=== PATIENT | male | born 1990 | race Caucasian/White ===

== ENCOUNTER 2020-08-18 07:52 | Emergency (ER) | payer SELFPAY ==
[2020-08-18 07:57] VITALS: BP 153/105; PULSE 99; RESP 18; TEMP 37.2; O2SAT 100; BMI 22.0
--- NOTE | 2020-08-18 08:01 | ED_ITS ---
HPI - URI/Sore Throat General: Chief Complaint: General Medical Stated Complaint: SWOLLEN THROAT Time Seen by Provider: 08/18/20 07:54 History of Present Illness: HPI Narrative: 30-year-old male presents to the emergency room with complaint of sore throat swelling in his throat. He states he woke up with it this morning. He has not had any vomiting not had any diarrhea he has not had any shortness of breath or coughing. No abdominal pain. MD elicited complaint: sore throat Onset (ago): hour(s) Consistency: constant Severity: moderate Exacerbating factors: swallowing and speaking Associated symptoms: Deny abdominal pain, change in voice, chills, chest pain, congestion, cough, diarrhea, epistaxis, ear or mastoid pain, fever(s), headache(s), myalgias, nasal congestion, nausea, rash, rhinorrhea, short of breath, sinus pain, stiffness, sore throat or vomiting Treatments prior to arrival: none Review of Systems Const: Denies: fever(s) or chills ENMT: Denies: ear or mastoid pain, nasal congestion, epistaxis or sinus pain Card: Denies: chest pain Resp: Denies: dyspnea, productive cough or non-productive cough GI: Denies: abdominal pain, nausea, vomiting or diarrhea : Denies: flank pain, dysuria, urinary frequency or urinary urgency Skin/Breast: Denies: rash or pruritus Neuro: Denies: headache(s) Physical Exam Const: COMMON NORMALS: no acute distress GENERAL APPEARANCE: cooperative and comfortable ORIENTATION/CONSCIOUSNESS: Yes awake, Yes oriented to person, Yes oriented to place and Yes oriented to time HENMT: COMMON NORMALS: normocephalic, atraumatic, hearing grossly normal bilaterally, external ears normal, EAC's normal, TM's normal bilaterally, Normal nasal mucous membranes and turbinates present and moist oral mucous membranes HEAD & SCALP: normocephalic and atraumatic NOSE: Normal nasal mucous membranes and turbinates present EXTERNAL EAR: Yes external ears normal EXTERNAL AUDITORY CANAL: EAC's normal TYMPANIC MEMBRANE: TM's normal bilaterally THROAT: posterior oropharynx abnormal edema, erythema and exudates Eye: COMMON NORMALS: Equal, round and reactive pupils present, EOMs intact bilaterally, conjunctivae normal and no scleral icterus CONJUNCTIVA: Yes conjunctivae normal PUPIL: Yes Equal, round and reactive pupils present Neck/C-Spine: COMMON NORMALS: full ROM, no lymphadenopathy, supple and no JVD Lymph: LYMPHATIC: no lymphadenopathy noted and no lymphedema noted Resp: COMMON NORMALS: normal respiratory effort, No retractions, No use of accessory muscles and clear to auscultation bilaterally AUSCULTATION: clear to auscultation bilaterally Cardio: COMMON NORMALS: no JVD, regular rate, regular rhythm and No murmurs present (Cardio) RATE: regular rate RHYTHM: regular rhythm GI: COMMON NORMALS: Soft to palpation and No hepatosplenomegaly present AUSCULTATION: Yes normoactive bowel sounds PALPATION: Yes Soft to palpation, No Tenderness to palpation present (GI), No Guarding due to palpation present (GI) and Yes No hepatosplenomegaly present Extremity: COMMON NORMALS: normal to inspection, capillary refill normal, no clubbing, cyanosis or edema, no calf tenderness and no pedal edema Neuro: SENSORIUM/ORIENTATION: Yes oriented to person, Yes oriented to place and Yes oriented to time Skin: COMMON NORMALS: no rashes or lesions noted GENERAL SKIN EXAM: no rashes or lesions noted Course Vital Signs: Vital signs: Vital Signs Temperature 99.0 F 08/18/20 07:57 Pulse Rate 99 08/18/20 09:59 Respiratory Rate 20 H 08/18/20 09:59 Blood Pressure 149/99 08/18/20 09:59 Pulse Oximetry 990 H 08/18/20 09:59 MDM - URI/Sore Throat MDM Narrative: Medical decision making narrative: Respiratory compromise or stridor. Started on amoxicillin. Stressed importance of finishing complete course of antibiotics Lab Data: Labs: Lab Results 08/18/20 Range/Units 08:20 Group A Strep Rapi d Positive H (Negative) Discharge Plan Discharge Patient Disposition: Home Clinical Impression: Strep pharyngitis Condition: Stable Prescriptions: New amoxicillin 875 mg tablet 875 mg PO BID Qty: 20 RF: 0 Discharge Orders: Discharge ED (Routine); Ordered 08/18/20 Ordered By: Chau Lopez Discharge Diet: Usual diet Discharge Activity: Increase activity as tolerated Patient Instructions: Opioid Safety, Strep Throat - Adult Coding Level of Care Code ED Computed Tomography Technician for Chg Fwd Exam Comprehensive
[2020-08-18] MEDS: sodium chloride 0.9% 1,000 ML 999 ML IV (08:08)
[2020-08-18 08:48] LABS: Rapid Strep A Test Positive (Negative)
[2020-08-18 09:59] VITALS: BP 149/99; PULSE 99; RESP 20; O2SAT 990
== END 2020-08-18 10:01 | disposition home or self-care (01) ==
PROVIDERS: Emergency Provider Family Medicine
DX: J02.0 Streptococcal pharyngitis (principal)
CPT/HCPCS: 87880; 96360; 99283; J2930; J7030

== ENCOUNTER 2021-09-26 20:00 | Emergency (ER) | payer BC, MEDICAID, SELFPAY ==
[2021-09-26 20:08] VITALS: BP 117/76; PULSE 110; RESP 15; TEMP 36.8; O2SAT 98; BMI 21.2
[2021-09-26 20:27] VITALS: BP 132/76; PULSE 110; RESP 18; O2SAT 97
--- NOTE | 2021-09-26 20:28 | ED_ITS ---
HPI - Eye Problem General: Chief complaint: Eye Problems Stated complaint: R eye swollen Time Seen by Provider: 09/26/21 20:15 History of Present Illness: Patient is a 31-year-old male who comes to the ED with right right eye pain and swelling. Symptoms started couple hours ago. Say s he was sitting in his house and turned on the fan. He then started feeling like his eye was irritated and some pain was in his right eye. He has tried rinsing his eye out with eyedrop solution. His eye pain is gotten worse and he started developing some redness in his eyes and periorbital swelling as well. He states that he feels like there is something in his right eye. Patient does not wear contacts or glasses. Says his right eye is watering a lot which is causing him some blurry vision but denies any other vision changes. Associated symptoms: Denies fever(s), headache(s), nausea, neck pain or vomiting Review of Systems Const: Denies: fever(s), chills or fatigue Eyes: Reports: blurry vision (Right eye watering a lot causing blurry vision.), eye discomfort (Right) and eye redness (Right); Denies: change in vision ENMT: Denies: throat pain, odynophagia, nasal discharge or nasal congestion Card: Denies: chest pain, palpitations, edema, swelling of feet/ankles, dyspnea on exertion or orthopnea Resp: Denies: dyspnea, productive cough or non-productive cough GI: Denies: abdominal pain, nausea, vomiting, diarrhea, constipation or hematochezia : Denies: flank pain, difficulty urinating, dysuria or hematuria Musc: Denies: neck pain, back pain or extremity swelling Skin/Breast: Denies: rash or new lesions Neuro: Denies: headache(s), numbness in extremities or weakness in extremities PFSH ED PFSH: Medical History No pertinent family history Surgical History No pertinent past surgical history Physical Exam Const: COMMON NORMALS: patient oriented x3, healthy appearing and alert GENERAL APPEARANCE: cooperative and comfortable HENMT: COMMON NORMALS: normocephalic HEAD & SCALP: normocephalic MOUTH: Normal oral and palatal mucosa present THROAT: posterior oropharynx normal and uvula midline Eye: COMMON NORMALS: Equal, round and reactive pupils present and EOMs intact bilaterally PERIORBITAL: periorbital findings abnormal positive right periorbital swelling EYELID: eyelid abnormality right upper eyelid swelling and right lower eyelid swelling CONJUNCTIVA: Yes conjunctival abnormal positive right conjunctival injection diffuse CORNEA: Yes fluorescein used PUPIL: Yes Equal, round and reactive pupils present SLIT LAMP EXAM: Yes slit lamp exam performed with fluorescein OTHER: Small brownish/black foreign body seen on cornea overlying the medial aspect of the iris. Fluorescein dye with Myles lamp exam performed and no fluorescein uptake on surface of eye. Right eye was having increased watering/tear production. Neck/C-Spine: COMMON NORMALS: supple GENERAL: Yes normal visual inspection Resp: COMMON NORMALS: normal respiratory effort, No retractions, No use of accessory muscles and clear to auscultation bilaterally AUSCULTATION: clear to auscultation bilaterally Cardio: COMMON NORMALS: regular rate, regular rhythm, S1 normal heart sound present, S2 normal heart sound present, No gallops present (Cardio), No clicks present (Cardio), No murmurs present (Cardio) and Peripheral pulses 2+ th roughout RATE: regular rate RHYTHM: regular rhythm HEART SOUNDS: S1 normal heart sound present and S2 normal heart sound present PERIPHERAL PULSES: Peripheral pulses 2+ throughout GI: COMMON NORMALS: Normal to inspection, nondistended, normoactive bowel sounds present, Soft to palpation, non-tender and no masses PALPATION: Yes Soft to palpation : COMMON NORMALS: Yes no CVA tenderness BLADDER/KIDNEY EXAM: Yes no CVA tenderness Back/Pelvis: COMMON NORMALS: no CVA tenderness Extremity: COMMON NORMALS: normal to inspection Neuro: COMMON NORMALS: patient oriented x3 and moves all extremities SENSORIUM/ORIENTATION: Yes alert Skin: GENERAL SKIN EXAM: dry skin Course ED course: Visible very small foreign body was noted upon exam. I excessively irrigated the right eye with Eye-Stream wash and made several attempts to remove foreign body that was unsuccessful. Vital Signs: Vital signs: Vital Signs Temperature 98.3 F 09/26/21 20:08 Pulse Rate 110 H 09/26/21 20:27 Respiratory Rate 18 09/26/21 20:27 Blood Pressure 132/76 09/26/21 20:27 Pulse Oximetry 97 09/26/21 20:27 MDM - Eye Problem Medical Decision Making Patient is a 31-year-old male comes to the ED with right eye discomfort and redness. Vitals are stable. Patient does have some periorbital and lid swelling. Diffuse conjunctival injection noted. Visible very small foreign body was seen on right eye. I excessively irrigated the right eye with Eye- Stream wash and made several attempts to remove foreign body that was unsuccessful. Fluorescein dye used with Myles lamp and no dye uptake noted. Erythromycin optic ointment was given here in the ED. Patient was diagnosed with eye foreign body and was discharged home and given instructions on following up with [facility] when they open back up on Tuesday. He was discharged with contact information for [facility]. He was sent home with a prescription for erythromycin optic ointment and hydrocodone for pain. He was given strict return to ED precautions over the next 24 to 48 hours if he is having any worsening symptoms. Patient understood and agreed with plan. Discharge Plan Discharge Patient Disposition: Home Clinical Impression: Eye foreign body Qualifiers: Encounter type: initial encounter Laterality: right Qualified Code(s): T15.91XA - Foreign body on external eye, part unspecified, right eye, initial encounter Condition: Stable Prescriptions: New erythromycin 5 mg/gram (0.5 %) ointment 1 applic ophthalmic (eye) Q8H 7 Days Qty: 3.5 0RF No Action amoxicillin 875 mg tablet 875 mg PO BID Qty: 20 0RF Discharge Orders: Discharge ED (Routine); Ordered 09/26/21 Ordered By: Sigifredo Gusman Discharge Diet: Regular Discharge Activity: Increase activity as tolerated Patient Instructions: Eye Foreign Body (ED), Opioid Safety Activity Restrictions/Additional Instructions: Follow-up with medical provider as directed. [facility] on Tuesday phone number is [phone]. Address is [facility] [address] Terrence Freire. take medications as prescribed. Return to the ER immediately if condition worsens over the next 24-48 hrs. Please read and understand discharge instructions. If any questions, please ask. Coding Level of Care Code ED Digital Production Operator for Eric Fwd Exam Comprehensive
[2021-09-26] MEDS: erythromycin Op Oint 1 gm 1 APPLIC EYE-RIGHT (21:25)
[2021-09-26] MEDS: HYDROcodone-acetaminophen 7.5-325 mg Tablet 2 TAB PO (21:25)
[2021-09-26] MEDS: eye irrigation 30 mL Btl EYE-RIGHT (21:26)
[2021-09-26] MEDS: fluorescein 1 mg Strip EYE-RIGHT (21:26)
[2021-09-26] MEDS: tetracaine 0.5% Op Soln 4 mL Btl 1 DROP EYE-RIGHT (21:27)
--- NOTE | 2021-09-26 21:44 | PC.NURSE ---
Patient sent home with [place] per PA Long orders.
== END 2021-09-26 21:43 | disposition home or self-care (01) ==
PROVIDERS: Emergency Provider Physician Assistant
DX: T15.91XA Foreign body on external eye, part unspecified, right eye, initial encounter (principal); X58.XXXA Exposure to other specified factors, initial encounter
CPT/HCPCS: 99283

== ENCOUNTER → 2022-07-22 14:53 | Outpatient (BNVA) | payer BC, MEDICAID, SELFPAY | PROVIDERS: Visit Provider Nurse Practitioner Family | DX: Z11.3 Encounter for screening for infections with a predominantly sexual mode of transmission (principal) | CPT/HCPCS: 86592; 86695; 86696; 86705; 86706; 86709; 86803; 87340; 87491; 87591; 87806 ==